=== PATIENT | male | born 1985 | race Two or more races ===

== ENCOUNTER 2025-03-10 21:58 | Emergency (ER) | payer MEDICAID, SELFPAY ==
[2025-03-10 21:59] VITALS: BMI 29.9
[2025-03-10 22:48] VITALS: BP 116/74; PULSE 68; RESP 18; TEMP 36.8; O2SAT 99
--- NOTE | 2025-03-10 22:49 | EDNOTE_ITS ---
ED Animal Bite RME/HPI General Chief Complaint: Animal Bite Stated Complaint: SPIDER BITE R FOOT Time Seen by Provider: 03/10/25 22:25 Arrival date/time: 03/10/25 21:58 39 year old male present to emergency room with c/o of spider bite right foot today. uptodate with tetanus LOCATION:foot SEVERITY: Symptoms are described as being severe with limitations on activities of daily living QUALITY: Symptoms are described as being dull or achy CONTEXT: The patient is unable to identify any inciting events. DURATION/TIMING: The symptoms started approximately one day ago and have been constant this then, and have been progressive getting worse. ASSOCIATED SYMPTOMS: The patient is unable to identify any other associated symptoms. MODIFYING FACTORS: The patient is unable to identify any alleviating or aggravating symptoms. PERTINENT ROS: denies IVDU, states no immunocompromising condition, denies any penetrating trauma, no fever, no unexplained nausea or vomiting, no headache, no chest pain REVIEW OF SYSTEMS: See History of Present Illness - with the exception of those mentioned in the history of present illness, all other systems reviewed and reported as negative GENERAL: In general the patient is awake, interactive, in an emergency department gurney. HEAD/EYES/EARS/NOSE/THROAT: normo-cephalic, atraumatic, mucus membranes are moist, anicteric, palpebral conjunctiva is pink, trachea is midline. NEUROLOGICAL: cranio-facial features are symmetric, moves all four extremities equally without obvious limitations or weakness. EXTREMITY: right mid MTP localized erythema no tenderness to palpation over the long bones or large joints of the bilateral upper extremities, no joint swelling, no joint erythema, no signs of trauma, no unilateral leg swelling and no peripheral edema. SKIN: warm, dry, well-perfused, no jaundice, no rash, no telangiectasias or petechia. PSYCH: calm, cooperative, no evidence of psychosis or agitation Related Data Previous Rx's ?Medication ?Instructions ?Recorded clindamycin HCl 300 mg capsule 300 mg PO QID 10 days # 40 caps 03/10/25 Allergies Allergy/AdvReac Type Severity Reaction Status Date / Time No Known Allergies Allergy Verified 03/10/25 22:02 Course Course Course Narrative: There is no airway involvement nor difficulty swallowing. Patient well/non-toxic appearing. No evidence of shock. Discussed advancement of fluids as tolerated. Educated patient on signs and symptoms of anaphylaxis. ?Presentation was most consistent with cellulitis from insect bite.? No crepitance to suggest necrotizing fasciitis. No evidence of sepsis, systemic symptoms, an abscess. Advised to monitor erythema for spread. Advised to elevate the part and hydration. Take antibiotics with yogurt or probiotic supplements.? ?I instructed to patient to follow up in few days If? is not improved , increasing in size, or any other worrisome symptoms.? Symptomatic therapies discussed. Instructed to go to ER if symptoms worsen or not improve.? Quality Measures none Orders Category Date Time Status Clindamycin [Cleocin] Med 03/10/25 23:00 Once 300 mg PO X1 ONE Vital Signs Vital signs: Vital Signs Temperature 98.2 F 03/10/25 22:48 Pulse Rate 68 03/10/25 22:48 Respiratory Rate 18 03/10/25 22:48 Blood Pressure 116/74 03/10/25 22:48 Pulse Oximetry (%) 99 03/10/25 22:48 Oxygen Delivery Method Room Air 03/10/25 22:48 Animal Bite Patient data External records reviewed:: [facility] previous records Clinical information provided by:: patient Social determinants that could affect healthcare access:: none Patient has the following chronic illnesses:: na How is presenting disease/condition affected by chronic disease/condition?: no chronic disease Evaluation data The following diagnostics were reviewed and interpreted by me:: other (specify) (na) Lab and/or radiology exams considered but not ordered:: n/a Interpretation Summary: n/a Medications / Prescriptions Medications or Prescriptions considered but not ordered:: n/a Medication administrations:: Medication Administration History Clindamycin HCl (Clindamycin 150 Mg Capsule) 300 mg PO X1 ONE Stop: 03/10/25 23:01 as stated above Consultations Consultation(s) initiated? (list below): No Diagnosis Most likely diagnosis given after review of the tests above:: insect bite infected Admission Indicated Admission indicated?: not indicated Admission Request Was there a request for admission?: No Disposition Plan Disposition Plan: Discharge Discharge Attestation Discharge Attestation: The patient and all family members were given an opportunity to ask questions and understood the discharge instructions. Discharge instructions specifically effects, indications for sooner follow up or return to the emergency department, and the expected course of current diagnosis. Patient condition: Stable Discharge Plan Plan Patient Disposition: HOME (Self Care) Health Concerns: Follow with PMD as directed Take tylenol or motrin as need Return to ED if sx worsen Prescriptions/Referrals Prescriptions/Med Rec: New clindamycin HCl 300 mg capsule 300 mg PO QID 10 Days Qty: 40 0RF Problem List Clinical Impression: Insect bite Patient/Caregiver Discharge Instructions Education Materials: ED Insect Sting/Bite, Infected Print Language: Hungarian Stand Alone Forms: [place] Award Info., Patient Portal Info Letter
[2025-03-10] MEDS: CLINDAMYCIN 150 MG CAPSULE 300 MG PO (23:18)
== END 2025-03-10 23:10 | disposition home or self-care (01) ==
LOC: SERX 23:35
PROVIDERS: Emergency Provider Emergency Medicine
DX: S90.861A Insect bite (nonvenomous), right foot, initial encounter (principal); L08.9 Local infection of the skin and subcutaneous tissue, unspecified; W57.XXXA Bitten or stung by nonvenomous insect and other nonvenomous arthropods, initial encounter
CPT/HCPCS: 99282; A9270